=== PATIENT | male | born 1995 | race Caucasian/White ===

== ENCOUNTER 2019-02-03 13:43 | Inpatient (IN) | payer OTHER ==
[~2019-02-03] VITALS: Ht 167.6 cm; Wt 82.1 kg
[2019-02-03 13:55] VITALS: Ht 167.6 cm; Wt 82.1 kg
[2019-02-03 15:17] LABS: BASOPHIL % 0.4 % (0-2); PLATELET COUNT 235 x10^3mcL (130-400); RED CELL DISTRIBUTION WIDTH 12.5 % (11.5-14.5)
[2019-02-03 15:19] LABS: CARBON DIOXIDE 25.7 mmol/L (21-32); CHLORIDE SERUM 99 mmol/L (98-107); CREATININE SERUM 0.7 mg/dL (0.7-1.3); GFR1 > 60 mL/min; GLUCOSE SERUM 347 mg/dL (74-106); POTASSIUM SERUM 3.9 mmol/L (3.5-5.1); SODIUM SERUM 137 mmol/L (136-145)
[2019-02-03 15:24] LABS: ALBUMIN 3.8 g/dL (3.4-5.0); ALKALINE PHOSPHATASE 151 U/L (46-116); ALT/SGPT 25 U/L (16-63); AST/SGOT 10 U/L (15-37); BILIRUBIN TOTAL 0.4 mg/dL (0.20-1.00)
[2019-02-03 15:50] LABS: AMPHETAMINE QUAL UR NONE DETECTED (See below)
[2019-02-03 17:05] LABS: microscopic required? NO
[2019-02-03 17:28] LABS: MAGNESIUM 2.1 mg/dL (1.8-2.4); PHOSPHOROUS 3.4 mg/dL (2.5-4.9)
[2019-02-03 17:41] LABS: UA SPECIFIC GRAVITY 1.015 (1.005-1.035)
[2019-02-03 17:53] LABS: urine erythrocyte NEGATIVE (NEGATIVE)
[2019-02-03 17:54] LABS: CHOLESTEROL/HDL RATIO 4.3
[2019-02-03 18:18] VITALS: BP 138/86
[2019-02-03 19:40] VITALS: BP 117/82
[2019-02-04 05:13] VITALS: BP 136/94
[2019-02-04 07:04] LABS: BASOPHIL % 0.8 % (0-2); PLATELET COUNT 243 x10^3mcL (130-400); RED CELL DISTRIBUTION WIDTH 12.9 % (11.5-14.5)
[2019-02-04 08:00] LABS: CALCIUM 8.9 mg/dL (8.5-10.1); CHLORIDE SERUM 101 mmol/L (98-107); CREATININE SERUM 0.6 mg/dL (0.7-1.3); GFR1 > 60 mL/min; GLUCOSE SERUM 188 mg/dL (74-106); POTASSIUM SERUM 3.3 mmol/L (3.5-5.1); SODIUM SERUM 139 mmol/L (136-145)
[2019-02-04 09:26] VITALS: BP 116/86
[2019-02-04] MEDS ORDERED: ATORVASTATIN CA40 M1 PO (12:23)
[2019-02-04] MEDS ORDERED: GOOD SENSE ASPI81 M3 PO (12:23)
[2019-02-04] MEDS ORDERED: GABAPENTIN100 M2 PO (12:24)
[2019-02-04 13:03] VITALS: BP 116/86
== END 2019-02-04 13:47 | disposition home or self-care (01) | DRG 47 ==
LOC: ED 13:43 → MU 16:45
PROVIDERS: Emergency Medicine; ADMIT Internal Medicine
DX: G45.9 Transient cerebral ischemic attack, unspecified (principal); E11.40 Type 2 diabetes mellitus with diabetic neuropathy, unspecified; E11.65 Type 2 diabetes mellitus with hyperglycemia; Z82.3 Family history of stroke
CPT/HCPCS: 82962; J1815; Q0092

== ENCOUNTER 2020-04-10 14:53 | Inpatient (IN) | payer OTHER ==
[~2020-04-10] VITALS: Ht 167.6 cm; Wt 98.0 kg
[~2020-04-10 14:53] MED LIST: ATORVASTATIN CA40 M1 PO; GABAPENTIN100 M2 PO; GOOD SENSE ASPI81 M3 PO
[2020-04-10 14:58] VITALS: Ht 167.6 cm; Wt 98.0 kg
--- NOTE | 2020-04-10 15:00 | NUR ---
PT BIBA [facility] C/O HIGH BLOOD SUGAR X1DAY PER EMS. UPON ARRIVAL, PT PRESENTING WITH ALOC, AAOX0. . EMS REPORTS PT WAS FOUND BY MOTHER LIKE THIS IN HIS BEDROOM. PT AWAKE BUT NONCOHERENT AND MUMBLING WORDS.
--- NOTE | 2020-04-10 15:05 | NUR ---
LITTLE COMPREHENSIVE HPI OBTAINED FROM FAMILY PER MEDIC. PT ALSO PRESENTS WITH SLIGHT DEEP LABORED BREATHING AT RATE OF APPROX 24-26 BREATHS PER MIN. PT EYES NOT TRACKING BUT OPEN SPONTANEOUSLY UPPER AND LOWER EXTREMITIES CONTRACTED; BL FEET ARE HYPEREXTENDED. SKIN IS COLD TO TOUCH THROUGHOUT. PT NOT ANSWERING QUESTIONS AND NOT FOLLOWING COMMANDS.
--- NOTE | 2020-04-10 15:34 | NUR ---
INFORMED DR GIL OF LOW TEMP TAKEN RECTALLY. WARM BLANKET ORDERED. HOUSE SUP NOTIFIED FOR DISTILLED WATER
--- NOTE | 2020-04-10 15:40 | NUR ---
PER DR JEFFERY ZHOU TO INITIATE RESTRAINTS
--- NOTE | 2020-04-10 15:45 | NUR ---
PT BUA PLACED ON SOFT WRIST RESTRAINTS DUE TO ALOC STATE. MD GIL AWARE.
[2020-04-10 15:46] LABS: PLATELET COUNT 169 x10^3mcL (130-400)
--- NOTE | 2020-04-10 15:47 | NUR ---
PLACED ON BLANKET WARMER DUE TO LOW RECTAL TEMP. AWARE.
--- NOTE | 2020-04-10 15:52 | NUR ---
NUNEZ CATH INSERTED. MD GIL AWARE. URINE SENT TO LAB. OUTPUT: 1450ML.
[2020-04-10 16:29] LABS: microscopic required? YES; urine erythrocyte 3+ (NEGATIVE)
[2020-04-10 16:37] LABS: ALKALINE PHOSPHATASE 148 U/L (46-116); ALT/SGPT 64 U/L (16-63); AST/SGOT 84 U/L (15-37); BILIRUBIN TOTAL 0.6 mg/dL (0.20-1.00); CALCIUM 7.5 mg/dL (8.5-10.1); CHLORIDE SERUM 82 mmol/L (98-107); CREATININE SERUM 2.1 mg/dL (0.7-1.3); GFR1 41 mL/min; TOTAL PROTEIN, SERUM 6.7 g/dL (6.4-8.2)
--- NOTE | 2020-04-10 16:52 | NUR ---
PER DR GIL ADM 50 MEQ BICARB PUSH AND INFUSE REMAINING 50 MEQ ORDER A DRIP. CALLED PHARMACY FOR CLARIFICATION AND EMAR ORDER CORRECTION.
[2020-04-10 16:54] LABS: ALBUMIN 3.1 g/dL (3.4-5.0)
[2020-04-10 16:55] LABS: SODIUM SERUM 113 mmol/L (136-145)
[2020-04-10 16:56] LABS: CARBON DIOXIDE < 5.0 mmol/L (21-32); GLUCOSE SERUM 730 mg/dL (74-106); POTASSIUM SERUM 6.5 mmol/L (3.5-5.1)
--- NOTE | 2020-04-10 17:00 | NUR ---
10U/HR INSULIN DRIP ORDER INITIATED BY MD GIL.
--- NOTE | 2020-04-10 17:41 | NUR ---
SEVERAL FAILED IV ATTEMPTS BY SEVERAL RN'S. INFORMED DR GIL OF SAME. PER DR GIL HE WILL PLACE EJ IV ACCESS
--- NOTE | 2020-04-10 17:48 | NUR ---
BRIEF REPORT GIVEN TO ADMITTING MD FOR ICU
--- NOTE | 2020-04-10 17:54 | NUR ---
NOTED PT SATURATION 90% ON RA. PLACED BACK ON N/C ON 2L O2.
[2020-04-10 18:02] LABS: BAND NEUTROPHIL 8 % (0-10); MONOCYTE 2 % (0-7); SEGMENTED NEUTROPHILS 71 % (37-75)
[2020-04-10 18:03] LABS: rbc morphology (normal/abnorm) NORMAL (NORMAL)
[2020-04-10 18:28] LABS: MAGNESIUM 3.2 mg/dL (1.8-2.4); PHOSPHOROUS 6.8 mg/dL (2.5-4.9)
--- NOTE | 2020-04-10 18:29 | NUR ---
CHANGED UNITS ON PUMP TO 5U/HR PER SLIDING SCALE. MADE AWARE.
--- NOTE | 2020-04-10 18:39 | NUR ---
AFTER PAGING DR SUGGS. GAVE THE VERBAL ORDER TO KEEP THE INSULIN DRIP AT 10ML/HR.
--- NOTE | 2020-04-10 18:42 | NUR ---
AFTER PAGING DR RUTHERFORD. TRUONG GAVE THE VERBAL ORDER TO KEEP THE INSULIN DRIP AT 10U/HR - WHICH WAS THE INITIATED ORDER BY DR. GIL.
--- NOTE | 2020-04-10 18:44 | NUR ---
AFTER PAGING DR RUTHERFORD. TRUONG GAVE THE VERBAL ORDER TO KEEP THE INSULIN DRIP AT 10U/HR - WHICH WAS THE INITIATED ORDER BY DR. GIL.
--- NOTE | 2020-04-10 18:46 | NUR ---
EJ PLACED BY MD GIL ON THE RIGHT SIDE.
--- NOTE | 2020-04-10 19:17 | NUR ---
REPORT GIVEN TO MIKAYLA TINEO
[2020-04-10 19:42] LABS: AMPHETAMINE QUAL UR NONE DETECTED (See below)
--- NOTE | 2020-04-10 19:43 | NUR ---
PATIENT SEEN NON VERBAL. INSULIN DRIP INFUSING @ 10 UNITS/HR ORDERED.
--- NOTE | 2020-04-10 20:00 | NUR ---
MD NOTIFIED OF LOW BLOOD PRESSURE ANOTHER 2 LOTER OF FLUID BOLUS STARTED.
[2020-04-10 20:23] LABS: CALCIUM 7.1 mg/dL (8.5-10.1); CHLORIDE SERUM 89 mmol/L (98-107); CREATININE SERUM 2.3 mg/dL (0.7-1.3); GFR1 37 mL/min; MAGNESIUM 2.6 mg/dL (1.8-2.4); PHOSPHOROUS 4.8 mg/dL (2.5-4.9)
[2020-04-10 20:38] LABS: CARBON DIOXIDE < 5.0 mmol/L (21-32); POTASSIUM SERUM 5.6 mmol/L (3.5-5.1); SODIUM SERUM 121 mmol/L (136-145)
[2020-04-10 20:39] LABS: GLUCOSE SERUM 550 mg/dL (74-106)
--- NOTE | 2020-04-10 20:50 | NUR ---
ABDNORMAL LABS RELATED TO BICARB DRIP STARTED FOR BICARB BELOW 5.6.
--- NOTE | 2020-04-10 21:00 | NUR ---
CALLED TO THE BEDSIDE. PATIENT'S BLOOD PRESSURE IS DROPPONG, NOW 79/44.
--- NOTE | 2020-04-10 21:22 | NUR ---
PATIENT STARTED ON LEVOPHED @ 4 MCG/MIN
--- NOTE | 2020-04-10 21:53 | NUR ---
ORDERED ADDITIONAL 2 LITERS OF NS FOLUS @ 2100, SAME INFUSED. TATKD HAD TOTAL OD 6 LITERS OF FLUID, BLOOD PRESSURE IS NOW 90/43
--- NOTE | 2020-04-11 00:30 | NUR ---
SPOKE WITH RESIDENT DR. TELLES REGARDING POSSIBLE CENTRAL LINE PLACEMENT. WILL CONFIRM PLAN OF CARE.
--- NOTE | 2020-04-11 00:33 | NUR ---
PER RESIDENT, DR. TELLES, ANTICIPATE ORDER FOR CENTRAL LINE.
--- NOTE | 2020-04-11 01:08 | NUR ---
ADMIT MD AT THE BED SIDE PREPAREING TO INSERT A CENTRAL LINE
[2020-04-11 01:11] LABS: CALCIUM 6.5 mg/dL (8.5-10.1); CREATININE SERUM 2.2 mg/dL (0.7-1.3); MAGNESIUM 2.1 mg/dL (1.8-2.4); PHOSPHOROUS 2.5 mg/dL (2.5-4.9); POTASSIUM SERUM 4.9 mmol/L (3.5-5.1)
[2020-04-11 01:14] LABS: CARBON DIOXIDE 5.14 mmol/L (21-32)
--- NOTE | 2020-04-11 01:30 | NUR ---
CENTRAL LINE INSERTED. POST XRAY ORDERED.
--- NOTE | 2020-04-11 04:37 | NUR ---
+MD PULLED BACK THE CVP LINE. SUTURED SAME AND OK USE. FLUID INFUSING WAS CONNECTED TO THE RT JUGULAR CVP LINE
--- NOTE | 2020-04-11 05:03 | NUR ---
BLOOD SUGAR IS 191 MG/DL. MD NOTIFIED FLUID OF D5 1/2 NS STARTED 2 200 ML/HR PER VERBAL ORDER FROM MD AND THE DKA PROTOCAL.
--- NOTE | 2020-04-11 05:15 | NUR ---
REPORT WAS GIVEN TO GARRISON. PATIENT TRANSPORTED TO ICU 9.BLOOS SUAR WAS 174 MG/DL. INSULIN DRIP INFUSING 2 4.2 UNITS/HR, BICARB 50/100ML @ 70 ML/HR; D51/2 NS @ 200 ML/HR AND LEVOPHED 4/MG 250 NN @ 30 MCG/MON. PATIENT APPEARS TO BE MORE ALLERT, EYE MOVEMENT TOWARDS VOICE IN RESPONSE TO VERBAL. PATIENT IS NON VERBAL, ANS IS MOVING HIS ARMS
[2020-04-11 05:49] VITALS: BP 97/48
--- NOTE | 2020-04-11 05:55 | NUR ---
PATIENT TRANSPORTED WITH #3 BAG OF LEVOPHED INFISING.TOTAL IV FLUIS IS 9 LITERS PLUS 500 WITH THE LEVOPHED.
--- NOTE | 2020-04-11 05:56 | NUR ---
RECEIVED PT FROM ER ACCOMPANIED BY MIKAYLA RN AND LETICIA EMT, PT TRANSFERRED TO ICU BED 9, NO COMPLICATIONS. PT ATTAHCED TO FULL CONE MACHINE FEEDER AND CONTINUOUS PULSE OXIMETRY. PT HOB ELEVATED 30 DEGREES, BED AT LOWEST SETTING, CALL LIGHT WITHIN REACH, FULL ASSIST WITH COTY RN AND MENG RN, STANDARD PRECUATIONS IN USE WITH SIMPLE MASK. SEE NURSING ADMISSION ASSESSMENT FOR MORE DETAILS.
--- NOTE | 2020-04-11 06:04 | NUR ---
NEOSYNEPHRINE GTT INITIATED @ 50 MCG/MIN, NIBP MAP=64.
[2020-04-11 06:06] LABS: BASOPHIL % 0.1 % (0-2); PLATELET COUNT 134 x10^3mcL (130-400); RED CELL DISTRIBUTION WIDTH 13.1 % (11.5-14.5)
[2020-04-11 06:13] LABS: CALCIUM 6.1 mg/dL (8.5-10.1); CREATININE SERUM 2.2 mg/dL (0.7-1.3); MAGNESIUM 1.9 mg/dL (1.8-2.4); POTASSIUM SERUM 3.9 mmol/L (3.5-5.1)
[2020-04-11 06:22] LABS: CARBON DIOXIDE 6.2 mmol/L (21-32)
--- NOTE | 2020-04-11 06:35 | NUR ---
LEVOPHED GTT TITRATED TO 26 MCG/MIN, NIBP MAP 70
--- NOTE | 2020-04-11 06:46 | NUR ---
BLOOD SUGAR 203, INSULIN GTT REMAINS @ 0.05 UNITS/KG/HR. D5 1/2 NS TITRATED TO 150 CC/HR TO KEEP BLOOD SUGAR BETWEEN 150-200.
--- NOTE | 2020-04-11 06:50 | NUR ---
LEVOPHED GTT TITRATED TO 20 MCG/MIN, NIBP MAP=66.
--- NOTE | 2020-04-11 07:02 | NUR ---
D5 1/2 NS @ 150 ML/HR PER DKA PROTOCOL TO KEEP BLOOD SUGAR BETWEEN 150-200
--- NOTE | 2020-04-11 07:15 | NUR ---
GAVE REPORT TO ARTI TINEOMANAGER OF SECURITY, UPDATES PROVIDED, QUESTIONS ANSWERED, ENDORSED ALL CARE.
[2020-04-11 08:32] LABS: CALCIUM 6.2 mg/dL (8.5-10.1); CREATININE SERUM 2.4 mg/dL (0.7-1.3); MAGNESIUM 1.8 mg/dL (1.8-2.4); PHOSPHOROUS 2.2 mg/dL (2.5-4.9)
--- NOTE | 2020-04-11 08:36 | NUR ---
PT RECIEVED ASLEEP, LETHARGIC, ONCE AWAKENED, FOLLOWS COMMANDS AND COOPERATES, ORIENTED TO PLACE AND SELF, DENIES PAIN, BS 209 AT 8AM, DECREASED D5 1/2 IV TO 125/H/RECHECK 929//COVID TEST NOT DONE, INFORMED RESIDENT AND ALSO INFORMED RESIDENT OF CO2/AWAIT ORDERS//W
[2020-04-11 08:50] LABS: CARBON DIOXIDE 5.9 mmol/L (21-32)
[2020-04-11 12:26] LABS: CALCIUM 6.1 mg/dL (8.5-10.1); CREATININE SERUM 2.8 mg/dL (0.7-1.3); MAGNESIUM 1.7 mg/dL (1.8-2.4)
[2020-04-11 12:31] LABS: CARBON DIOXIDE 6.1 mmol/L (21-32)
[2020-04-11 14:43] VITALS: BP 89/69
[2020-04-11 15:45] LABS: CALCIUM 6.1 mg/dL (8.5-10.1); CREATININE SERUM 2.9 mg/dL (0.7-1.3); MAGNESIUM 1.7 mg/dL (1.8-2.4); PHOSPHOROUS 1.8 mg/dL (2.5-4.9); POTASSIUM SERUM 3.8 mmol/L (3.5-5.1)
[2020-04-11 19:15] VITALS: BP 90/44
--- NOTE | 2020-04-11 19:23 | NUR ---
pt recieved weakly following commands/voices name and whereabouts but very lethargic//pt on 2 pressors, and 4l nc/pt family aware he is very sick, swab for COVID sent to lab/pt npo because he is too lethargic to be trusted not to aspirate/1800-had to place pt on nrm 15l/pt levophed at 30mics, cyndy at 50 d5 1/2 at 100 and has recieved x4 liters of ns bolus/urine out put 500 today///pt remains lethargic but responsive// spoke to pt sister and updated that pt remains critical//mw
--- NOTE | 2020-04-11 19:45 | NUR ---
NIBP 95/63 MAP 57. NEOSYNEPRHINE GTT TITRATED TO 75 MCG/MIN
--- NOTE | 2020-04-11 20:02 | NUR ---
PT NOTED RACQUEL ON SIGNAL OPERATOR, HR IN THE 40'S. UPON ENTERING ROOM, PT NOTED UNRESPONSIVE, GASPING FOR AIR, FOAMING FROM THE MOUTH, CYANOTIC IN COLOR. NO PULSE PRESENT WHEN ASSESSED, PT IN PEA, COMPRESSIONS INITIATE. SEE CODE SHEET FOR DETAILS.
--- NOTE | 2020-04-11 20:14 | NUR ---
NIBP 89/40 MAP 59. NEOSYNEPRHINE GTT TITRATED TO 100 MCG/MIN
--- NOTE | 2020-04-11 20:15 | NUR ---
INTUBATION NOTE: 20:15 PT INTUBATED 7.5 ETT @ 23 CM LL. LUNGS ASUCULTATED BILATERALLY. RISE/FALL CHEST SYMMETRIC. ETT CONNECTED TO VENT WITH SETTINGS: VCV/AC MODE, RATE 12, PEEP 5, FIO2 100%, VT 450. AWAITING CXR FOR VERIFICATION OF PLACEMENT. PT'S CURRENT SPO2 82% ON TUBE INSPECTOR.
--- NOTE | 2020-04-11 20:30 | NUR ---
16 FR. OGT INSERTED AT THIS TIME. AIR BOLUS AUSULTATED OVER EPIGASTRIC REGION. AWAITING CXR FOR VERIFICATION OF PLACEMENT
--- NOTE | 2020-04-11 20:55 | NUR ---
X-RAY TECH AT BEDSIDE FOR VERIFICATION OF ETT/OGT PLACEMENT
[2020-04-11 21:16] LABS: CREATININE SERUM 3.6 mg/dL (0.7-1.3); MAGNESIUM 1.9 mg/dL (1.8-2.4); PHOSPHOROUS 4.4 mg/dL (2.5-4.9); POTASSIUM SERUM 4.2 mmol/L (3.5-5.1)
[2020-04-11 21:19] LABS: RED CELL DISTRIBUTION WIDTH 13.4 % (11.5-14.5)
[2020-04-11 21:21] LABS: CALCIUM 5.8 mg/dL (8.5-10.1); CARBON DIOXIDE 9.3 mmol/L (21-32)
--- NOTE | 2020-04-11 21:21 | NUR ---
VASOPRESSIN INITIATED AT THIS TIME FOR BP SUPOPRT @ 0.01 UNITS/MIN
[2020-04-11 21:22] LABS: PLATELET COUNT 106 x10^3mcL (130-400)
[2020-04-11 21:37] LABS: BAND NEUTROPHIL 15 % (0-10); BASOPHIL 0 % (0-2); MONOCYTE 3 % (0-7); SEGMENTED NEUTROPHILS 73 % (37-75)
[2020-04-11 21:40] LABS: PLATELET MORPHOLOGY PLATELETS NORMAL; rbc morphology (normal/abnorm) NORMAL (NORMAL)
--- NOTE | 2020-04-11 21:40 | NUR ---
PT HEART RATE IN 40'S, PT ASSESSED, NO PALPABLE PULSE PRESENT PEA, CODE BLUE INITIATED. SEE CODE BLUE SHEET FOR DETAILS.
[2020-04-11 21:49] LABS: BILIRUBIN TOTAL 0.7 mg/dL (0.20-1.00); CREATININE SERUM 3.6 mg/dL (0.7-1.3); POTASSIUM SERUM 4.1 mmol/L (3.5-5.1)
[2020-04-11 21:50] LABS: ALBUMIN 1.9 g/dL (3.4-5.0); TOTAL PROTEIN, SERUM 4.9 g/dL (6.4-8.2)
[2020-04-11 21:51] LABS: CALCIUM 5.8 mg/dL (8.5-10.1); CARBON DIOXIDE 8.6 mmol/L (21-32)
--- NOTE | 2020-04-11 22:42 | NUR ---
DR. CORDELIA FRANKS AT BEDSIDE. RECEIVED VERBAL ORDER TO INCREASE VASOPRESSIN GTT @ 0.04 UNITS/MIN
--- NOTE | 2020-04-11 22:48 | NUR ---
DR. MONSON SPEAKING TO THE PT'S DAUGHTER VIA TELEHONE AT THIS TIME. UPDATED ON PT'S STATUS, PROGNOSIS, AND POC. ALL QUESTIONS/CONCERNS ADDRESSED
--- NOTE | 2020-04-11 22:55 | NUR ---
RT CHANGED VENT SETTINGS TO RATE 20 AND VT TO [address] MONSON
--- NOTE | 2020-04-11 22:55 | NUR ---
PT RACQUEL ON RESTAURANT CASHIER, HR 37. NO PULSE PALPABLE, PT IN PEA. COMPRESSIONS INITIATED AT THIS TIME. SEE CODE BLUE SHEET FOR DETAIL.
--- NOTE | 2020-04-11 23:05 | NUR ---
RECEVIED VERBAL ORDER FOR VERSED 2MG IVP TO BE ADMINISTERED AT THIS TIME.
--- NOTE | 2020-04-11 23:07 | NUR ---
VERSED GTT INTIIATED @ 0.5 MG/HR AND FENTANYL GTT @ 0.5 MCG/KG/HR PER DR. MONSON VERBAL ORDER AT BEDSIDE
--- NOTE | 2020-04-11 23:55 | NUR ---
DR. SALDANA AT BEDSIDE FOR REINTUBATION. PT INTUBATED WITH 7.5 ETT, 25 CM @ LL. AWAITING FOR CXR FOR VERIFICATION
[2020-04-12] VITALS (7 sets, daily range): BP systolic 90–119; BP diastolic 37–55
--- NOTE | 2020-04-12 00:15 | NUR ---
PER DR. TINY ZHOU TO TITRATE INSULIN GTT TO 0.1 MCG/KG/HR FOR BLOOD SUGAR OF 466.
[2020-04-12 00:40] LABS: CALCIUM 6.6 mg/dL (8.5-10.1); CREATININE SERUM 3.8 mg/dL (0.7-1.3); MAGNESIUM 1.7 mg/dL (1.8-2.4); PHOSPHOROUS 4.7 mg/dL (2.5-4.9); POTASSIUM SERUM 3.9 mmol/L (3.5-5.1)
[2020-04-12 00:48] LABS: CARBON DIOXIDE 8.6 mmol/L (21-32)
[2020-04-12 06:22] LABS: CALCIUM 6.7 mg/dL (8.5-10.1); CARBON DIOXIDE 10.1 mmol/L (21-32); MAGNESIUM 1.6 mg/dL (1.8-2.4); PHOSPHOROUS 2.2 mg/dL (2.5-4.9)
[2020-04-12 06:49] LABS: POTASSIUM SERUM 2.8 mmol/L (3.5-5.1)
[2020-04-12 06:50] LABS: CREATININE SERUM 4.2 mg/dL (0.7-1.3)
--- NOTE | 2020-04-12 07:15 | NUR ---
GAVE REPORT TO MODESTA TINEO. UPDATES PROVIDED QUESTIONS ANSWERED, ENDORSED CARE.
[2020-04-12 09:39] LABS: CALCIUM 6.7 mg/dL (8.5-10.1); CARBON DIOXIDE 10.5 mmol/L (21-32); MAGNESIUM 1.5 mg/dL (1.8-2.4); PHOSPHOROUS 1.5 mg/dL (2.5-4.9)
[2020-04-12 09:42] LABS: POTASSIUM SERUM 2.6 mmol/L (3.5-5.1)
[2020-04-12 09:43] LABS: CREATININE SERUM 4.3 mg/dL (0.7-1.3)
--- NOTE | 2020-04-12 09:50 | NUR ---
0950 INCREASED PEEP TO 8 AND RR TO [address] WILLSON/MARY JO TINEO.
--- NOTE | 2020-04-12 10:00 | NUR ---
PT. PEEP SET AT 8, RATE SET AT 30 RT AT BEDSIDE
--- NOTE | 2020-04-12 11:25 | NUR ---
ATTEMPTED ABG X3. UNSCUCESSFUL. NOTIFIED RIVKA CAMARGO
[2020-04-12 12:46] LABS: CALCIUM 6.8 mg/dL (8.5-10.1); MAGNESIUM 1.5 mg/dL (1.8-2.4); PHOSPHOROUS 1.3 mg/dL (2.5-4.9)
--- NOTE | 2020-04-12 12:49 | NUR ---
DR. HERNANDEZ ASSESSED PT BEDSIDE. PT'S STATUS UPDATED. PER DR. HERNANDEZ, DC SOUDIUM BIOCAR 150ML 0.9% NS, START PT ON 0.45% NS WITH SODIUM BIOCARB 100ML, INFUSING AT 150ML/HR.
[2020-04-12 12:59] LABS: CREATININE SERUM 4.4 mg/dL (0.7-1.3); POTASSIUM SERUM 2.4 mmol/L (3.5-5.1)
--- NOTE | 2020-04-12 14:45 | NUR ---
EXTUBATED PT. PLACED ON 2L NC FOR COMFORT.
--- NOTE | 2020-04-12 14:47 | NUR ---
PER PT'S FAMILY, CHANGED PT TO COMFORT CARE. ALL THE VASOPRESSOR. STARTED PT ON MORPHINE DRIP. RT EXTUBATED PT, SWITCHED TO 2L NC. OGT IS REMOVED. PT'S FAMILY AT BEDSIDE.
--- NOTE | 2020-04-12 16:10 | NUR ---
CALLED [facility] AND REPORTED PT'S . STAFF ADRIANA CHAVEZ RELEASED PT WITH CASE NO. [id number]. CALLED [facility] AND REPORTED PT'S . STAFF WILL RECEIVED REPORT. WAITING FOR [facility] NURSE CALL BACK. PT'S SISTER AMRIK IS STILL IN PT'S ROOM.
--- NOTE | 2020-04-12 17:20 | NUR ---
INDUSTRIAL ENERGY ENGINEER NURSE BEATER TENDER CHIARA NÚÑEZ CALLED BACK AND RELEASED BODY WITHOUT CASE NUMBER.
--- NOTE | 2020-04-12 18:56 | NUR ---
MORGAN CARE DONE. SECURITY MADE AWARE TO ELECTRICAL TECH/PROJECT MANAGER BODY.
== END 2020-04-12 15:06 | disposition expired | DRG 720 ==
LOC: ED 14:53 → IC 17:21
PROVIDERS: Emergency Medicine; ADMIT Internal Medicine; ATTEND Internal Medicine
PROC: 02H633Z Insertion of Infusion Device into Right Atrium, Percutaneous Approach (ICD-10-PCS; principal; 2020-04-10)
PROC: B548ZZA Ultrasonography of Superior Vena Cava, Guidance (ICD-10-PCS; 2020-04-10)
PROC: 5A1935Z Respiratory Ventilation, Less than 24 Consecutive Hours (ICD-10-PCS; 2020-04-11)
PROC: 02HV33Z Insertion of Infusion Device into Superior Vena Cava, Percutaneous Approach (ICD-10-PCS; 2020-04-11)
PROC: B548ZZA Ultrasonography of Superior Vena Cava, Guidance (ICD-10-PCS; 2020-04-11)
PROC: 0BH17EZ Insertion of Endotracheal Airway into Trachea, Via Natural or Artificial Opening (ICD-10-PCS; 2020-04-11)
DX: A41.89 Other specified sepsis (principal); J96.01 Acute respiratory failure with hypoxia; U07.1 COVID-19; R65.21 Severe sepsis with septic shock; E10.10 Type 1 diabetes mellitus with ketoacidosis without coma; K85.90 Acute pancreatitis without necrosis or infection, unspecified; N17.9 Acute kidney failure, unspecified; E87.5 Hyperkalemia; E87.1 Hypo-osmolality and hyponatremia; Z79.82 Long term (current) use of aspirin; Z82.3 Family history of stroke; D72.829 Elevated white blood cell count, unspecified; E86.0 Dehydration; Z91.19 Patient's noncompliance with other medical treatment and regimen
CPT/HCPCS: 36600; 82962; 85378; A4628; G0378; J0610; J1250; J1642; J1815; J2250; J2270; J2370; J2543; J3010; J3370; J3480; J3490; J7030; J7040; J7050; J7060; Q0092; U0003-CS